=== PATIENT | female | born 1960 | race Caucasian/White ===

== ENCOUNTER 2017-08-14 10:02 | Emergency (ER) | payer BC ==
[~2017-08-14] VITALS: Ht 170.2 cm; Wt 99.8 kg
[~2017-08-14 10:02] MED LIST: DILAUDID2 MG PO; MEDROL DOSEPAK4 MG PO; MOTRIN PM CAPL1 EAC1 PO; PRILOSEC40 MG PO; VENTOLIN HFA18 GM IH; ZESTORETIC 20-1 EAC1 PO
[2017-08-14 10:43] LABS: HEMATOCRIT 41.5 % (36.0-46.0); MCH 29.6 PG (29.0-34.0); MCHC 33.3 G/DL (30.0-36.0); MCV 89.1 FL (83-99); MEAN PLAT.VOLUME 9.1 uM^3 (9.5-12.4); PLATELET COUNT 326 K/uL (156-360); RBC DIS.WIDTH-CV 12.9 % (11.8-14.6); RBC DIS.WIDTH-SD 42.2 % (39-53); RED BLOOD COUNT 4.66 M/uL (3.80-5.20); WHITE BLOOD COUNT 10.3 K/uL (4.1-10.2)
[2017-08-14 10:54] LABS: CHLORIDE 106 mEq/L (99-109); POTASSIUM 3.3 mEq/L (3.7-5.4); SODIUM 139 mEq/L (136-147)
[2017-08-14 10:56] LABS: GLUCOSE 99 mg/dL (70-99)
[2017-08-14 10:57] LABS: ANION GAP 10 MEQ/L (2-14)
[2017-08-14 10:58] LABS: TOTAL BILIRUBIN 0.5 mg/dL (0.0-1.0)
[2017-08-14 10:59] LABS: ALKALINE PHOSPHATASE 101 IU/L (3-129)
[2017-08-14 11:00] LABS: GFR ESTIMATE (CALCULATED) > 59 mL/min/
[2017-08-14 11:01] LABS: UREA NITROGEN (BUN) 9 mg/dL (9-23)
[2017-08-14 11:56] LABS: ADD MIUA? YES; BILIRUBIN NEGATIVE; BLOOD SMALL; COLOR COLORLESS ((YELLOW)); GLUCOSE (STRIP) NEGATIVE; KETONES NEGATIVE; LEUKOCYTES NEGATIVE; NITRITE NEGATIVE; PROTEIN (STRIP) NEGATIVE; SPECIFIC GRAVITY 1.003 (1.000-1.030); UROBILINOGEN 0.2 MG/DL (0.2-1.0)
[2017-08-14 12:04] LABS: BACTERIA RARE /HPF; EPITHELIAL CELLS RARE /HPF; MUCUS NONE SEEN /LPF; RED BLOOD CELLS 0-5 /HPF (0-5); UCUL ADDED? NO; WHITE BLOOD CELLS 0-5 /HPF (0-5)
[2017-08-14] MEDS ORDERED: CIPRO500 MG PO (12:56)
[2017-08-14] MEDS ORDERED: FLAGYL500 MG PO (12:56)
[2017-08-14] MEDS ORDERED: PERCOCET 5/31 TABLET PO (13:05)
[2017-08-14] MEDS ORDERED: ZOFRAN ODT4 MG PO (13:05)
[2017-08-14 13:41] VITALS: BP 116/67
== END 2017-08-14 13:43 | disposition home or self-care (01) ==
LOC: EME 10:02
PROVIDERS: Nurse Practitioner Family
DX: K52.9 Noninfective gastroenteritis and colitis, unspecified (principal); K92.1 Melena; I10 Essential (primary) hypertension
CPT/HCPCS: 74177; 80053; 81003; 85027; 87506; 99281; 99284; J2270; J2405; J7030

== ENCOUNTER 2018-06-11 06:08 | Emergency (ER) | payer BC ==
[~2018-06-11] VITALS: Ht 170.2 cm; Wt 105.1 kg
[~2018-06-11 06:08] MED LIST changes: +CIPRO500 MG PO; +FLAGYL500 MG PO; +PERCOCET 5/31 TABLET PO; +ZOFRAN ODT4 MG PO
[2018-06-11 06:48] LABS: HEMATOCRIT 41.6 % (36.0-46.0); HEMOGLOBIN 14.3 G/DL (11.9-15.5); MCH 30.3 PG (29.0-34.0); MCHC 34.4 G/DL (30.0-36.0); MCV 88.1 FL (83-99); PLATELET COUNT 309 K/uL (156-360); RBC DIS.WIDTH-CV 13.1 % (11.8-14.6); RBC DIS.WIDTH-SD 42.3 % (39-53); RED BLOOD COUNT 4.72 M/uL (3.80-5.20); WHITE BLOOD COUNT 13.7 K/uL (4.1-10.2)
[2018-06-11 06:58] LABS: CHLORIDE 102 mEq/L (99-109); POTASSIUM 3.6 mEq/L (3.7-5.4); SODIUM 140 mEq/L (136-147)
[2018-06-11 07:00] LABS: GLUCOSE 116 mg/dL (70-99); TOTAL PROTEIN 7.3 g/dL (6.4-8.3)
[2018-06-11 07:02] LABS: TOTAL BILIRUBIN 0.4 mg/dL (0.0-1.0)
[2018-06-11 07:03] LABS: ALKALINE PHOSPHATASE 87 IU/L (3-129)
[2018-06-11 07:04] LABS: CREATININE 0.9 mg/dL (0.6-1.3); GFR ESTIMATE (CALCULATED) > 59 mL/min/
[2018-06-11 07:05] LABS: AST (GOT) 18 IU/L (2-34); UREA NITROGEN (BUN) 9 mg/dL (9-23)
[2018-06-11 07:07] LABS: ALT (GPT) 15 IU/L (3-49)
[2018-06-11 07:33] LABS: APPEARANCE CLEAR ((CLEAR)); BILIRUBIN NEGATIVE; BLOOD MODERATE; COLOR YELLOW ((YELLOW)); GLUCOSE (STRIP) NEGATIVE; KETONES 5; LEUKOCYTES NEGATIVE; NITRITE NEGATIVE; PROTEIN (STRIP) 30; SPECIFIC GRAVITY 1.025 (1.000-1.030); UROBILINOGEN 0.2 MG/DL (0.2-1.0)
[2018-06-11 07:52] LABS: BACTERIA RARE /HPF; EPITHELIAL CELLS RARE /HPF; MUCUS 1+ /LPF; UCUL ADDED? NO; WHITE BLOOD CELLS 0-5 /HPF (0-5)
[2018-06-11] MEDS ORDERED: PERCOCET 5/31 TABLET PO (10:44)
[2018-06-11] MEDS ORDERED: FLAGYL500 MG PO (10:44)
[2018-06-11] MEDS ORDERED: CIPRO500 MG PO (10:44)
[2018-06-11 11:53] VITALS: BP 123/78
== END 2018-06-11 11:54 | disposition home or self-care (01) ==
LOC: EME 06:08
DX: N28.1 Cyst of kidney, acquired (principal); K52.9 Noninfective gastroenteritis and colitis, unspecified; I10 Essential (primary) hypertension; K21.9 Gastro-esophageal reflux disease without esophagitis; F32.9 Major depressive disorder, single episode, unspecified; Z88.5 Allergy status to narcotic agent; Z88.8 Allergy status to other drugs, medicaments and biological substances
CPT/HCPCS: 74177; 80053; 81003; 85027; 99281; 99285; J2405; J3010; J7030